=== PATIENT | male | born 1985 | race Caucasian/White ===

== ENCOUNTER 2017-10-03 03:56 | Inpatient (IN) | payer OTHER ==
[~2017-10-03] VITALS: Ht 170.2 cm; Wt 95.2 kg
[~2017-10-03 03:56] MED LIST: METHADONE1 MG/1 ML PO; MOTRIN800 MG PO
[2017-10-03 04:52] LABS: HEMATOCRIT 41.5 % (38.0-50.0); HEMOGLOBIN 14.6 G/DL (12.5-16.6); MCHC 35.2 G/DL (30.0-36.0); MCV 85.2 FL (86-99); PLATELET COUNT 144 K/uL (156-360); RBC DIS.WIDTH-CV 13.8 % (11.8-14.6); RBC DIS.WIDTH-SD 43.2 % (39-53); RED BLOOD COUNT 4.87 M/uL (4.00-5.50); WHITE BLOOD COUNT 6.6 K/uL (4.1-10.2)
[2017-10-03 05:08] LABS: CHLORIDE 106 mEq/L (99-109); POTASSIUM 3.7 mEq/L (3.7-5.4); SODIUM 144 mEq/L (136-147)
[2017-10-03 05:09] LABS: ALBUMIN 4.2 g/dL (3.2-4.8); MAGNESIUM 1.9 mg/dL (1.3-2.7)
[2017-10-03 05:11] LABS: GLUCOSE 109 mg/dL (70-99); TOTAL PROTEIN 7.8 g/dL (6.4-8.3)
[2017-10-03 05:13] LABS: TOTAL BILIRUBIN 1.4 mg/dL (0.0-1.0)
[2017-10-03 05:14] LABS: PHOSPHORUS 2.9 mg/dL (2.5-4.9); SERUM ETHYL ALCOHOL 110 mg/dL
[2017-10-03 05:15] LABS: ALKALINE PHOSPHATASE 87 IU/L (3-129); CREATININE 0.7 mg/dL (0.6-1.3); GFR ESTIMATE (CALCULATED) > 59 mL/min/ (58.99-99999)
[2017-10-03 05:16] LABS: AST (GOT) 109 IU/L (2-34); UREA NITROGEN (BUN) 3 mg/dL (9-23)
[2017-10-03 05:18] LABS: ALT (GPT) 85 IU/L (3-49); LIPASE 27 U/L (1.0-51.0)
[2017-10-03 05:29] LABS: APPEARANCE CLEAR ((CLEAR)); BILIRUBIN NEGATIVE; BLOOD NEGATIVE; COLOR COLORLESS ((YELLOW)); GLUCOSE (STRIP) NEGATIVE; KETONES NEGATIVE; LEUKOCYTES NEGATIVE; NITRITE NEGATIVE; PROTEIN (STRIP) NEGATIVE; SPECIFIC GRAVITY 1.002 (1.000-1.030); UCUL ADDED? NO; UROBILINOGEN 0.2 MG/DL (0.2-1.0)
[2017-10-03 05:31] LABS: TROP-I INTERPRETATION NEGATIVE; TROPONIN-I 0.01 ng/mL (0.0-0.30)
[2017-10-03 05:51] LABS: AMPHETAMINE NEGATIVE (500 ng/mL); BARBITURATES NEGATIVE (200 ng/mL); BENZODIAZEPINES NEGATIVE (150 ng/mL); BUPRENORPHINE NEGATIVE (10 ng/mL); COCAINE PRESUMPTIVE POSITIVE (150 ng/mL); METHADONE PRESUMPTIVE POSITIVE (200 ng/mL); METHAMPHETAMINE NEGATIVE (500 ng/mL); OPIATES (MORPHINE) NEGATIVE (100 ng/mL); OXYCODONE NEGATIVE (100 ng/mL); PHENCYCLIDINE NEGATIVE (25 ng/mL); PROPOXYPHENE NEGATIVE (300 ng/mL); THC CANNABINOIDS NEGATIVE (50 ng/mL); TRICYCLIC ANTIDEPRESSANTS NEGATIVE (300 ng/mL)
[2017-10-03 09:45] VITALS: BP 141/70
[2017-10-03 11:34] VITALS: BP 135/82
[2017-10-03 16:02] VITALS: BP 125/75
[2017-10-03 19:37] VITALS: BP 135/81
[2017-10-03 23:11] VITALS: BP 113/71
[2017-10-04 04:56] VITALS: BP 113/71
[2017-10-04 07:00] LABS: HEMATOCRIT 36.3 % (38.0-50.0); MCH 29.1 PG (29.0-34.0); MCHC 33.3 G/DL (30.0-36.0); MCV 87.3 FL (86-99); PLATELET COUNT 104 K/uL (156-360); RBC DIS.WIDTH-CV 14.1 % (11.8-14.6); RBC DIS.WIDTH-SD 45.1 % (39-53); RED BLOOD COUNT 4.16 M/uL (4.00-5.50); WHITE BLOOD COUNT 2.7 K/uL (4.1-10.2)
[2017-10-04 07:07] LABS: HEMOGLOBIN 12.1 G/DL (12.5-16.6)
[2017-10-04 07:21] LABS: CHLORIDE 106 MEQ/L (99-109); CREATININE 0.6 MG/DL (0.6-1.3); GFR ESTIMATE (CALCULATED) > 59 mL/min/ (58.99-99999); GLUCOSE 115 mg/dL (70-99); POTASSIUM 4.3 MEQ/L (3.7-5.4); SODIUM 138 MEQ/L (136-147); UREA NITROGEN (BUN) 4 mg/dL (9-23)
[2017-10-04 08:23] VITALS: BP 122/72
[2017-10-04 11:52] VITALS: BP 115/66
[2017-10-04 16:53] VITALS: BP 132/61
[2017-10-04 20:25] VITALS: BP 119/74
[2017-10-04 23:35] VITALS: BP 114/74
[2017-10-05 03:38] VITALS: BP 121/75
[2017-10-05 07:35] VITALS: BP 136/62
[2017-10-05 10:31] VITALS: BP 131/61
[2017-10-05 15:50] VITALS: BP 120/68
[2017-10-05 20:41] VITALS: BP 131/63
[2017-10-05 23:43] VITALS: BP 120/63
[2017-10-06 04:40] VITALS: BP 120/67
[2017-10-06 07:26] VITALS: BP 122/65
[2017-10-06 10:56] VITALS: BP 120/56
[2017-10-06 15:51] VITALS: BP 112/58
[2017-10-06 20:17] VITALS: BP 117/64
[2017-10-06 23:53] VITALS: BP 130/71
[2017-10-07 04:43] VITALS: BP 121/75
[2017-10-07 08:01] VITALS: BP 114/56
[2017-10-07 10:53] VITALS: BP 115/58
[2017-10-07] MEDS ORDERED: IBUPROFEN400 MG PO (14:41)
[2017-10-07] MEDS ORDERED: CLONIDINE HCL0.2 MG PO (14:41)
[2017-10-07] MEDS ORDERED: Thiamine,Vitamin B1 PO (14:43)
[2017-10-07] MEDS ORDERED: FAMOTIDINE20 MG PO (14:43)
[2017-10-07 14:50] VITALS: BP 122/59
== END 2017-10-07 15:24 | disposition home or self-care (01) | DRG 897 ==
LOC: EME 03:56 → EDOF 06:32 → 3EAST 06:32 → ENRESERV 06:36 → 3EAST 08:59
PROVIDERS: Emergency Medicine; Family Medicine
DX: F14.229 Cocaine dependence with intoxication, unspecified (principal); F14.23 Cocaine dependence with withdrawal; F10.239 Alcohol dependence with withdrawal, unspecified; R00.2 Palpitations; R00.1 Bradycardia, unspecified; I95.9 Hypotension, unspecified; I45.10 Unspecified right bundle-branch block; T51.0X1A Toxic effect of ethanol, accidental (unintentional), initial encounter; I10 Essential (primary) hypertension; R07.9 Chest pain, unspecified; Z86.74 Personal history of sudden cardiac arrest; F17.210 Nicotine dependence, cigarettes, uncomplicated; F11.20 Opioid dependence, uncomplicated; Z79.1 Long term (current) use of non-steroidal anti-inflammatories (NSAID); Y92.9 Unspecified place or not applicable
CPT/HCPCS: 71046; 80048; 80053; 81003; 82948; 83690; 83735; 84100; 84484; 84999; 85027; 93005; 99281; 99285; G0480; J1650; J2060; J2405; J7030